=== PATIENT | female | born 1960 | race Caucasian/White ===

== ENCOUNTER 2016-05-26 10:40 | Emergency (ER) | payer BC ==
[~2016-05-26] VITALS: Ht 162.6 cm; Wt 88.5 kg
[~2016-05-26 10:40] MED LIST: HYDR-762 PO; IBUP-1542 PO; LOSA100T7 PO; METF500T4 PO; ONDA4TAB8 PO
[2016-05-26 10:50] VITALS: Ht 162.6 cm; Wt 88.5 kg
[2016-05-26] MEDS ORDERED: ACETAMINOPHEN 500 MG TAB PO STA (11:26)
[2016-05-26] MEDS ORDERED: ACETAMINOPHEN 500 MG TAB ONE (11:36)
[2016-05-26] MEDS ORDERED: KETOROLAC 60 MG INJ IM STA (11:51)
[2016-05-26] MEDS ORDERED: KETOROLAC 60 MG INJ ONE (12:04)
[2016-05-26] MEDS ORDERED: IBUP-1542 PO (13:28)
[2016-05-26] MEDS ORDERED: ULT50 PO (13:28)
--- NOTE | 2016-05-26 13:33 | ERD ---
ER Documentation Chief Complaint Date/Time DATE: 05/26/16 TIME: 13:31 Chief Complaint RT SIDED FLANK PAIN STARTING THIS MORNING HPI This 58-year-old female presents with right-sided flank pain started this morning. She possibly has some dysuria or frequent urination as well patient has a history of trauma, weakness or bowel or bladder incontinence. She has any fevers, chest pain, shortness of breath, vomiting. ROS All systems reviewed and are negative except as per history of present illness. Medications Home Meds Active Scripts Ibuprofen* (Motrin*) 600 Mg Tab, 600 MG PO Q6, #20 TAB Prov:SHANTELL MCKNIGHT MD 05/26/16 Tramadol HCl (Tramadol HCl) 50 Mg Tablet, 50 MG PO Q4 Y for PAIN, #20 TAB Prov:SHANTELL MCKNIGHT MD 05/26/16 Ibuprofen* (Motrin*) 600 Mg Tab, 600 MG PO Q6, #20 TAB Prov:SHANTELL MCKNIGHT MD 07/29/15 Reported Medications Hydrocodone Bit-Acetaminophen* ([place]*) 10-325 Mg Tablet, 1 TAB PO QID Y for PAIN, TAB 04/21/14 Metformin* (Glucophage*) 500 Mg Tab, 500 MG PO BID, TAB 04/21/14 Losartan Potassium* (Losartan Potassium*) 100 Mg Tablet, 100 MG PO DAILY, TAB 04/21/14 Ondansetron Hcl* (Zofran*) 4 Mg Tablet, 4 MG PO Q6H Y for NAUSEA AND OR VOMITING , TAB 04/21/14 Allergies Allergies: Coded Allergies: No Known Allergies (Verified Allergy, Mild, 04/21/14) PMhx/Soc History of Surgery: Yes (RIGHT KNEE SURGERY, ECTOPIC , RECTAL SURGERY) Anesthesia Reaction: No Hx Neurological Disorder: No Hx Respiratory Disorders: No Hx Cardiac Disorders: Yes (HTN) Hx Psychiatric Problems: No Hx Miscellaneous Medical Probl: Yes (DM, HIGH CHOLESTEROL) Hx Alcohol Use: No Hx Substance Use: No Hx Tobacco Use: No Physical Exam Vitals Vital Signs Date Time Temp Pulse Resp B/P Pulse Ox O2 Delivery O2 Flow Rate FiO2 05/26/16 10:50 98.4 81 18 141/78 96 Physical Exam Const: [] Alert, [id number]. Head: Atraumatic Eyes: Normal Conjunctiva ENT: Normal External Ears, Nose and Mouth. Neck: Full range of motion..~ No meningismus. Resp: Clear to auscultation bilaterally Cardio: Regular rate and rhythm, no murmurs Abd: Soft, non tender, non distended. Normal bowel sounds Skin: No petechiae or rashes Back: No midline tenderness there is some mild tenderness in the right L2-L3 area possibly the right flank. There is no mid midline tenderness or deformities and no rashes. Ext: No cyanosis, or edema Neur: Awake and alert Psych: Normal Mood and Affect Results 24 hrs Current Medications Medications (Trade) Dose Ordered Sig/Cassidy Route PRN Reason Start Time Stop Time Status Last Admin Dose Admin Acetaminophen (Tylenol Tab) 500 mg ONCE STAT PO 05/26/16 11:26 05/26/16 11:28 DC 05/26/16 11:37 Ketorolac Tromethamine (Toradol) 60 mg ONCE STAT IM 05/26/16 11:51 05/26/16 11:53 DC 05/26/16 12:07 Procedures/MDM Urine shows 1+ hemoglobin without glucose, nitrites, leukocytes. Patient was given Tylenol 500 mg initially and then Toradol [address] abdomen pelvis without contrast given the uncertain cause of pain shows no acute abnormalities , no stones no signs of pyelonephritis, diverticulitis, additional causes of flank pain. Patient felt better after observation treatment. Patient presents with right flank pain of uncertain etiology, possibly muscular skeletal pain. Signs and symptoms are not consistent with UTI, aortic disease, acute abdomen, additional causes of flank pain. Patient will be treated with tramadol and ibuprofen at home and instructions to follow-up with primary doctor this week. She is also given instructions on back exercises. Patient is advised to return to the ER for new or worsening symptoms with primary care doctor. Departure Diagnosis: Primary Impression: Flank pain Condition: Stable Patient Instructions: Back Exercises, Lumbar, Flank Pain, Uncertain Cause Additional Instructions: Urine shows no signs of infection today. CT shows no acute abnormalities. May be musculoskeletal pain. Recheck with primary doctor this week or for new or worsening symptoms. SHANTELL MCKNIGHT MD May 26, 2016 13:33
[2016-05-26 13:52] VITALS: BP 139/86; PULSE 68; RESP 18; TEMP 98.4
[2016-05-26 16:48] LABS: URINE BLOOD (Dip) POC 1+ (NEGATIVE)
--- NOTE | 2016-05-26 19:18 | RADRPT ---
PROCEDURE: CT Abdomen and Pelvis without contrast. CLINICAL INDICATION: Right flank pain, hematuria TECHNIQUE: CT of the abdomen and pelvis was performed on a multi-detector scanner without IV contr ast. Coronal and sagittal images were reformatted from the axial data set. One or more of the foll owing dose reduction techniques were used: automated exposure control, adjustment of the mA and/or kV according to patient size, use of iterative reconstruction technique. CTDI = 21.44 mGy. DLP = 12 10.12 mGy-cm. COMPARISON: None available. FINDINGS: CT abdomen: The lung bases are clear. The heart size is normal, without pericardial effusion. Coronary arteria l calcifications are present. Hepatic fatty infiltration is noted, without evidence of focal mass. Gallbladder, biliary tree, pancreas, spleen, adrenal glands and kidneys are unremarkable. No uroli thiasis or obstructive uropathy is identified. The stomach is grossly unremarkable. The aorta is of normal caliber. Aortic vascular calcifications are present. There is no retroperit rausch lymphadenopathy. The slava hepatis region is clear. 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 CT pelvis: No bowel obstruction, free intraperitoneal air or abscess is identified. Colonic diverticulosis is seen without diverticulitis. The appendix is well visualized and normal. There is no colitis. Uri nary bladder, uterus and adnexa are grossly unremarkable. Fat containing right inguinal hernia is s een, without incarceration. No pelvic mass, free fluid or lymphadenopathy is identified. The surrounding osseous structures are remarkable for degenerative spondylosis of the spine. No ost eolytic or osteoblastic lesion is detected. IMPRESSION: 1. Hepatic steatosis is noted. 2. No urolithiasis or obstructive uropathy is seen. 3. Colonic diverticulosis is noted, without diverticulitis. 4. Fat-containing right inguinal hernia is seen, without incarceration. 5. Coronary arterial and aortoiliac atherosclerotic calcifications are noted. 6. No mass, lymphadenopathy, or focal acute inflammatory process is identified. RPTAT: QQ .Hipolito Estrella MD, MD Date Time Electronically viewed and signed by .Hipolito Estrella MD, MD on 05/26/2016 13:06 .R/
== END 2016-05-26 13:53 | disposition home or self-care (01) ==
LOC: FTE 10:40
DX: R10.9 Unspecified abdominal pain (principal); I10 Essential (primary) hypertension; E11.9 Type 2 diabetes mellitus without complications; Z79.84 Long term (current) use of oral hypoglycemic drugs
CPT/HCPCS: 74176; 81003; 82962; 96372; J1885

== ENCOUNTER → 2016-07-24 | Outpatient (CLI) | payer BC ==
[~2016-07-24] MED LIST changes: +TRAM50TA2 PO
[2016-07-24 07:08] LABS: ADD SCAN DIFF NO
[2016-07-24 07:18] LABS: BASOPHIL # 0.1 10^3/ul (0.0-0.1); BASOPHILS % 0.9 % (0.0-2.0); EOSINOPHILS # 0.2 10^3/ul (0.0-0.5); EOSINOPHILS % 3.5 % (0.0-7.0); HEMATOCRIT 38.7 % (37.0-47.0); HEMOGLOBIN 12.8 g/dl (12.0-16.0); LYMPHOCYTES # 2.1 10^3/ul (0.8-2.9); LYMPHOCYTES % 37.2 % (15.0-51.0); MEAN CORPUSCULAR HEMOGLOBIN 29.8 pg (29.0-33.0); MEAN CORPUSCULAR HGB CONC 33.1 g/dl (32.0-37.0); MEAN CORPUSCULAR VOLUME 90.2 fl (82.0-101.0); MONOCYTE # 0.7 10^3/ul (0.3-0.9); MONOCYTES % 11.5 % (0.0-11.0); NEUTROPHIL # 2.7 10^3/ul (1.6-7.5); NEUTROPHILS % 46.7 % (39.0-77.0); PLATELET COUNT 326 10^3/UL (140-415); RED BLOOD COUNT 4.29 10^6/ul (4.20-5.40); WHITE BLOOD COUNT 5.7 10^3/ul (4.8-10.8)
[2016-07-24 07:32] LABS: CHLORIDE 104 mmol/L (97-110); POTASSIUM 4.3 mmol/L (3.5-5.1); SODIUM 145 mmol/L (135-144)
[2016-07-24 07:34] LABS: BILIRUBIN,INDIRECT 0.4 mg/dl (0-1.1); BILIRUBIN,TOTAL 0.4 mg/dl (0.2-1.3); CREATININE 0.53 mg/dl (0.44-1.00)
[2016-07-24 07:35] LABS: ALANINE AMINOTRANSFERASE 41 IU/L (13-69); ALBUMIN/GLOBULIN RATIO 0.93; ALKALINE PHOSPHATASE 92 IU/L (42-121); ANION GAP 17 (8-16); ASPARTATE AMINO TRANSFERASE 32 IU/L (15-46); BLOOD UREA NITROGEN 18 mg/dl (7-20); CALCIUM 9.4 mg/dl (8.4-10.2); CARBON DIOXIDE 28 mmol/L (21-31); GLUCOSE 122 mg/dl (70-220); TOTAL PROTEIN 8.3 g/dl (6.1-8.1)
== END | disposition home or self-care (01) ==
LOC: LAB 06:42
PROVIDERS: ATTEND Specialist
DX: M06.9 Rheumatoid arthritis, unspecified (principal)
CPT/HCPCS: 80053; 82306; 85025; 85651; 86140

== ENCOUNTER → 2016-10-08 | Outpatient (CLI) | payer BC ==
[~2016-10-08] MED LIST changes: +IODIXANOL LOCM 100 ML BTL ONE; +SOD CHLORIDE 0.9% 100 ML ONE
--- NOTE | 2016-10-08 17:11 | RADRPT ---
PROCEDURE: CT of the pelvis CLINICAL INDICATION: Pelvic pain TECHNIQUE: The study was performed utilizing a GE CloudSplitpeed 64-slice multidetector CT scanner. Dir ect spiral axial sections were obtained through the pelvis without and with intravenous contrast. Ap proximately 100cc of Visipaque 320, postcontrast images was administered. Coronal and sagittal refo rmatted images were performed. The CTDI vol is 38.13 mGy and the DLP is 1608.89 mGy-cm. The images were reviewed on a PACS workstation. COMPARISON: CT of the abdomen and pelvis from 05/26/2016 FINDINGS: The visualized solid organs appear unremarkable. Sigmoid diverticulosis is seen without evidence of diverticulitis. The remaining visualized large bowel is otherwise unremarkable. The small bowel i s normal. Normal appendix is identified. No abnormally enlarged lymph nodes are seen. Atherosclero tic vascular disease is seen. No focal fluid collection or abscess is seen. CT pelvis: No pelvic mass, adenopathy, or focal fluid collection is seen. There is no free fluid. The urinary bladder is normal. The uterine is heterogeneous with parenchymal calcifications once ag ain. No osseous lesions are seen. Degenerative spondylosis of the lumbar spine is seen. IMPRESSION: 1. No CT evidence for acute pathology in the pelvis. 2. Sigmoid diverticulosis without evidence of diverticulitis again seen. 3. Heterogeneous uterus with multiple parenchymal calcifications which may be leiomyomatous in natu re. Consider pelvic ultrasound correlation as clinically warranted. RPTAT: HPNM Physician Sharon Date Time Electronically viewed and signed by Physician Sharon on 10/08/2016 17:11 /
== END | disposition home or self-care (01) ==
LOC: C/S 11:56
PROVIDERS: ATTEND Obstetrics & Gynecology
DX: R10.2 Pelvic and perineal pain (principal); K57.90 Diverticulosis of intestine, part unspecified, without perforation or abscess without bleeding; N85.8 Other specified noninflammatory disorders of uterus
CPT/HCPCS: 72194; Q9967

== ENCOUNTER → 2016-12-04 | Outpatient (CLI) | payer BC ==
[~2016-12-04] MED LIST changes: -IODIXANOL LOCM 100 ML BTL ONE; -SOD CHLORIDE 0.9% 100 ML ONE
[2016-12-04 10:43] LABS: ADD SCAN DIFF NO
[2016-12-04 10:55] LABS: BASOPHILS % 0.6 % (0.0-2.0); EOSINOPHILS # 0.2 10^3/ul (0.0-0.5); EOSINOPHILS % 2.8 % (0.0-7.0); HEMATOCRIT 39.8 % (37.0-47.0); HEMOGLOBIN 12.8 g/dl (12.0-16.0); LYMPHOCYTES # 2.4 10^3/ul (0.8-2.9); LYMPHOCYTES % 38.1 % (15.0-51.0); MEAN CORPUSCULAR HGB CONC 32.2 g/dl (32.0-37.0); MEAN PLATELET VOLUME 10.5 fl (7.4-10.4); MONOCYTE # 0.6 10^3/ul (0.3-0.9); MONOCYTES % 9.9 % (0.0-11.0); NEUTROPHIL # 3.1 10^3/ul (1.6-7.5); NEUTROPHILS % 48.4 % (39.0-77.0); PLATELET COUNT 293 10^3/UL (140-415); RED BLOOD COUNT 4.42 10^6/ul (4.20-5.40); RED CELL DISTRIBUTION WIDTH 13.4 % (11.5-14.5); WHITE BLOOD COUNT 6.4 10^3/ul (4.8-10.8)
[2016-12-04 11:14] LABS: ALANINE AMINOTRANSFERASE 53 IU/L (13-69); ALBUMIN 4.7 g/dl (3.3-4.9); ALBUMIN/GLOBULIN RATIO 1.42; ALKALINE PHOSPHATASE 82 IU/L (42-121); ANION GAP 11 (8-16); ASPARTATE AMINO TRANSFERASE 34 IU/L (15-46); BILIRUBIN,INDIRECT 0.5 mg/dl (0-1.1); BILIRUBIN,TOTAL 0.5 mg/dl (0.2-1.3); BLOOD UREA NITROGEN 14 mg/dl (7-20); CARBON DIOXIDE 30 mmol/L (21-31); CHLORIDE 102 mmol/L (97-110); CREATININE 0.52 mg/dl (0.44-1.00); GLUCOSE 118 mg/dl (70-220); SODIUM 139 mmol/L (135-144)
== END | disposition home or self-care (01) ==
LOC: LAB 10:14
PROVIDERS: ATTEND Internal Medicine Rheumatology
DX: M06.9 Rheumatoid arthritis, unspecified (principal)
CPT/HCPCS: 80053; 82306; 85025; 85651; 86140

== ENCOUNTER → 2017-01-03 | Outpatient (CLI) | payer BC ==
[2017-01-03 07:59] LABS: BASOPHILS % 0.4 % (0.0-2.0); EOSINOPHILS # 0.2 10^3/ul (0.0-0.5); EOSINOPHILS % 3.3 % (0.0-7.0); HEMATOCRIT 39.1 % (37.0-47.0); LYMPHOCYTES # 1.8 10^3/ul (0.8-2.9); LYMPHOCYTES % 26.6 % (15.0-51.0); MEAN CORPUSCULAR HEMOGLOBIN 29.7 pg (29.0-33.0); MEAN CORPUSCULAR HGB CONC 33.2 g/dl (32.0-37.0); MEAN CORPUSCULAR VOLUME 89.5 fl (82.0-101.0); MEAN PLATELET VOLUME 10.2 fl (7.4-10.4); MONOCYTE # 0.6 10^3/ul (0.3-0.9); MONOCYTES % 9.4 % (0.0-11.0); PLATELET COUNT 311 10^3/UL (140-415); RED BLOOD COUNT 4.37 10^6/ul (4.20-5.40); RED CELL DISTRIBUTION WIDTH 13.1 % (11.5-14.5); WHITE BLOOD COUNT 6.7 10^3/ul (4.8-10.8)
[2017-01-03 08:22] LABS: ALBUMIN 4.3 g/dl (3.3-4.9); ALBUMIN/GLOBULIN RATIO 1.16; BILIRUBIN,INDIRECT 0.5 mg/dl (0-1.1); BILIRUBIN,TOTAL 0.5 mg/dl (0.2-1.3); C-REACTIVE PROTEIN 2.8 mg/dl (0.0-0.9); CALCIUM 9.4 mg/dl (8.4-10.2); CREATININE 0.51 mg/dl (0.44-1.00); POTASSIUM 4.3 mmol/L (3.5-5.1)
== END | disposition home or self-care (01) ==
LOC: LAB 07:06
PROVIDERS: ATTEND Internal Medicine Rheumatology
DX: M06.9 Rheumatoid arthritis, unspecified (principal); E55.9 Vitamin D deficiency, unspecified
CPT/HCPCS: 80053; 82306; 85025; 85651; 86140

== ENCOUNTER → 2017-02-06 | Outpatient (CLI) | payer BC ==
[2017-02-06 07:28] LABS: BASOPHILS % 0.7 % (0.0-2.0); EOSINOPHILS # 0.2 10^3/ul (0.0-0.5); EOSINOPHILS % 3.7 % (0.0-7.0); HEMATOCRIT 39.4 % (37.0-47.0); HEMOGLOBIN 12.8 g/dl (12.0-16.0); LYMPHOCYTES # 1.6 10^3/ul (0.8-2.9); LYMPHOCYTES % 29.9 % (15.0-51.0); MEAN CORPUSCULAR HEMOGLOBIN 29.3 pg (29.0-33.0); MEAN CORPUSCULAR HGB CONC 32.5 g/dl (32.0-37.0); MEAN CORPUSCULAR VOLUME 90.2 fl (82.0-101.0); MEAN PLATELET VOLUME 10.1 fl (7.4-10.4); MONOCYTE # 0.5 10^3/ul (0.3-0.9); MONOCYTES % 9.9 % (0.0-11.0); NEUTROPHILS % 55.6 % (39.0-77.0); PLATELET COUNT 295 10^3/UL (140-415); RED BLOOD COUNT 4.37 10^6/ul (4.20-5.40); RED CELL DISTRIBUTION WIDTH 13.2 % (11.5-14.5); WHITE BLOOD COUNT 5.4 10^3/ul (4.8-10.8)
[2017-02-06 08:01] LABS: ALANINE AMINOTRANSFERASE 49 IU/L (13-69); ALBUMIN 3.8 g/dl (3.3-4.9); ALBUMIN/GLOBULIN RATIO 1.08; ALKALINE PHOSPHATASE 98 IU/L (42-121); ANION GAP 10 (8-16); ASPARTATE AMINO TRANSFERASE 34 IU/L (15-46); BILIRUBIN,INDIRECT 0.5 mg/dl (0-1.1); BILIRUBIN,TOTAL 0.5 mg/dl (0.2-1.3); BLOOD UREA NITROGEN 13 mg/dl (7-20); CALCIUM 9.1 mg/dl (8.4-10.2); CARBON DIOXIDE 29 mmol/L (21-31); CHLORIDE 105 mmol/L (97-110); CREATININE 0.53 mg/dl (0.44-1.00); GLUCOSE 150 mg/dl (70-220); POTASSIUM 4.2 mmol/L (3.5-5.1); SODIUM 140 mmol/L (135-144); TOTAL PROTEIN 7.3 g/dl (6.1-8.1)
== END | disposition home or self-care (01) ==
LOC: LAB 06:51
PROVIDERS: ATTEND Internal Medicine Rheumatology
DX: M06.9 Rheumatoid arthritis, unspecified (principal)
CPT/HCPCS: 80053; 85025; 85651; 86140; 86480

== ENCOUNTER 2017-02-09 10:20 | Emergency (ER) | payer BC ==
[~2017-02-09] VITALS: Ht 160 cm; Wt 90.0 kg
[2017-02-09 10:22] VITALS: Ht 160 cm; Wt 90.0 kg
--- NOTE | 2017-02-09 11:14 | RADRPT ---
PROCEDURE: Right breast ultrasound. CLINICAL INDICATION: Right breast pain and tenderness. Fibrocystic disease of breast. TECHNIQUE: Right whole, 4 quadrant breast and retroareolar, and axillary sonography was performed. COMPARISON: None. FINDINGS: No solid or suspicious masses. No malignant adenopathy. No dominant cysts are present. IMPRESSION: No sonographic evidence of malignancy. ACR BIRADS 1: NEGATIVE RPTAT: EE .Tammy Rosa MD, MD Date Time Electronically viewed and signed by .Tammy Rosa MD, on 02/09/2017 11:14 .F/
[2017-02-09] MEDS ORDERED: IBUP-1542 PO (11:49)
--- NOTE | 2017-02-09 11:52 | ERD ---
ER Documentation Chief Complaint Date/Time DATE: 02/09/17 TIME: 11:50 Chief Complaint lump on right breast x3 days, sent by pcp HPI 56-year-old female presents with three-day history of pain in her right breast. She possibly feels a small lump. She was referred by her primary doctor for evaluation in the ER. She denies any fevers, nipple discharge, history of trauma. Patient denies ever having had a mammogram. ROS All systems reviewed and are negative except as per history of present illness. Medications Home Meds Active Scripts Ibuprofen* (Motrin*) 600 Mg Tab, 600 MG PO Q6, #18 TAB Prov:SHANTELL MCKNIGHT MD 02/09/17 Ibuprofen* (Motrin*) 600 Mg Tab, 600 MG PO Q6, #20 TAB Prov:SHANTELL MCKNIGHT MD 05/26/16 Tramadol HCl (Tramadol HCl) 50 Mg Tablet, 50 MG PO Q4 Y for PAIN, #20 TAB Prov:SHANTELL MCKNIGHT MD 05/26/16 Ibuprofen* (Motrin*) 600 Mg Tab, 600 MG PO Q6, #20 TAB Prov:SHANTELL MCKNIGHT MD 07/29/15 Reported Medications Hydrocodone Bit-Acetaminophen* ([place]*) 10-325 Mg Tablet, 1 TAB PO QID Y for PAIN, TAB 04/21/14 Metformin* (Glucophage*) 500 Mg Tab, 500 MG PO BID, TAB 04/21/14 Losartan Potassium* (Losartan Potassium*) 100 Mg Tablet, 100 MG PO DAILY, TAB 04/21/14 Ondansetron Hcl* (Zofran*) 4 Mg Tablet, 4 MG PO Q6H Y for NAUSEA AND OR VOMITING , TAB 04/21/14 Allergies Allergies: Coded Allergies: No Known Allergies (Verified Allergy, Mild, 04/21/14) PMhx/Soc Medical and Surgical Hx: pt denies Medical Hx, pt denies Surgical Hx History of Surgery: Yes (RIGHT KNEE SURGERY, ECTOPIC , RECTAL SURGERY) Anesthesia Reaction: No Hx Neurological Disorder: No Hx Respiratory Disorders: No Hx Cardiac Disorders: Yes (HTN) Hx Psychiatric Problems: No Hx Miscellaneous Medical Probl: Yes (DM, HIGH CHOLESTEROL) Hx Alcohol Use: No Hx Substance Use: No Hx Tobacco Use: No Physical Exam Vitals Vital Signs Date Time Temp Pulse Resp B/P Pulse Ox O2 Delivery O2 Flow Rate FiO2 02/09/17 10:22 98.2 84 18 133/84 98 Physical Exam Const: []Alert, not ill-appearing Head: Atraumatic Eyes: Normal Conjunctiva ENT: Normal External Ears, Nose and Mouth. Neck: Full range of motion..~ No meningismus. Resp: Clear to auscultation bilaterally Cardio: Regular rate and rhythm, no murmurs Abd: Soft, non tender, non distended. Normal bowel sounds Skin: No petechiae or rashes. Slight tenderness at 12:00 on the right breast. There is no appreciable dominant masses nipple discharge, lymphadenitis or skin changes. Possibly small area of irritation although this may be from pointing and rubbing. Back: No midline or flank tenderness Ext: No cyanosis, or edema Neur: Awake and alert Psych: Normal Mood and Affect Procedures/MDM Breast ultrasound limited read as normal by the radiologist. Patient presents to the right breast pain of uncertain etiology. May be glandular. There is no current evidence of abscess, dominant masses, signs of cellulitis. She will be treated with ibuprofen and primary care follow-up. Patient was advised that she is due to have a mammogram based upon her age. Patient redness, fevers, new worsening symptoms or primary doctor as directed. The patient was stable with no new complaints during the ER course. Clinically, there is no current evidence to suggest meningitis, sepsis, acute abdomen, pneumonia, acute coronary syndrome, pulmonary embolism, or any other emergent condition appearing to require further evaluation or hospitalization. The patient should certainly return for any new or worsening symptoms per the aftercare instructions. They should otherwise follow-up with her primary care doctor for reevaluation this week. Departure Diagnosis: Primary Impression: Breast pain Condition: Stable Patient Instructions: Breast Self-Exam (BSE) Additional Instructions: Ultrasound read as normal today. See primary doctor for mammogram. Recheck for worsening redness, fevers, new symptoms. SHANTELL MCKNIGHT MD Feb 09, 2017 11:52
== END 2017-02-09 12:06 | disposition home or self-care (01) ==
LOC: FTE 10:20
DX: N64.4 Mastodynia (principal); I10 Essential (primary) hypertension; E11.9 Type 2 diabetes mellitus without complications; Z79.84 Long term (current) use of oral hypoglycemic drugs
CPT/HCPCS: 76642

== ENCOUNTER → 2017-03-20 | Outpatient (CLI) | payer BC ==
[2017-03-20 07:48] LABS: BASOPHILS % 0.5 % (0.0-2.0); EOSINOPHILS # 0.2 10^3/ul (0.0-0.5); EOSINOPHILS % 3.4 % (0.0-7.0); HEMATOCRIT 38.6 % (37.0-47.0); HEMOGLOBIN 12.8 g/dl (12.0-16.0); LYMPHOCYTES # 2.3 10^3/ul (0.8-2.9); LYMPHOCYTES % 35.6 % (15.0-51.0); MEAN CORPUSCULAR HEMOGLOBIN 29.4 pg (29.0-33.0); MEAN CORPUSCULAR HGB CONC 33.2 g/dl (32.0-37.0); MEAN CORPUSCULAR VOLUME 88.5 fl (82.0-101.0); MEAN PLATELET VOLUME 10.2 fl (7.4-10.4); MONOCYTE # 0.6 10^3/ul (0.3-0.9); MONOCYTES % 8.9 % (0.0-11.0); NEUTROPHIL # 3.4 10^3/ul (1.6-7.5); NEUTROPHILS % 51.4 % (39.0-77.0); PLATELET COUNT 275 10^3/UL (140-415); RED BLOOD COUNT 4.36 10^6/ul (4.20-5.40); RED CELL DISTRIBUTION WIDTH 13.5 % (11.5-14.5); WHITE BLOOD COUNT 6.5 10^3/ul (4.8-10.8)
[2017-03-20 08:08] LABS: ALANINE AMINOTRANSFERASE 51 IU/L (13-69); ALBUMIN 4.3 g/dl (3.3-4.9); ALBUMIN/GLOBULIN RATIO 1.16; ALKALINE PHOSPHATASE 89 IU/L (42-121); ANION GAP 14 (8-16); ASPARTATE AMINO TRANSFERASE 40 IU/L (15-46); BILIRUBIN,INDIRECT 0.6 mg/dl (0-1.1); BILIRUBIN,TOTAL 0.6 mg/dl (0.2-1.3); BLOOD UREA NITROGEN 17 mg/dl (7-20); CALCIUM 8.8 mg/dl (8.4-10.2); CARBON DIOXIDE 27 mmol/L (21-31); CHLORIDE 105 mmol/L (97-110); CREATININE 0.55 mg/dl (0.44-1.00); GLUCOSE 141 mg/dl (70-220); POTASSIUM 4.3 mmol/L (3.5-5.1); SODIUM 142 mmol/L (135-144)
== END | disposition home or self-care (01) ==
LOC: LAB 07:16
PROVIDERS: ATTEND Specialist
DX: M06.9 Rheumatoid arthritis, unspecified (principal)
CPT/HCPCS: 80053; 85025; 85651; 86140

== ENCOUNTER → 2017-05-12 | Outpatient (CLI) | END | disposition home or self-care (01) ==

== ENCOUNTER 2017-05-22 06:35 | Emergency (ER) | payer BC ==
[~2017-05-22] VITALS: Ht 160 cm; Wt 94.3 kg
[2017-05-22 06:41] VITALS: Ht 160 cm; Wt 94.3 kg
[2017-05-22] MEDS ORDERED: CLON0.5T4 PO (07:53)
[2017-05-22] MEDS ORDERED: FOLI-49 PO (07:53)
[2017-05-22] MEDS ORDERED: ADAL40SY SQ (07:53)
[2017-05-22] MEDS ORDERED: MET25 PO (07:55)
[2017-05-22 08:05] LABS: BASOPHILS % 0.5 % (0.0-2.0); EOSINOPHILS # 0.2 10^3/ul (0.0-0.5); EOSINOPHILS % 3.1 % (0.0-7.0); HEMOGLOBIN 12.8 g/dl (12.0-16.0); LYMPHOCYTES # 1.6 10^3/ul (0.8-2.9); LYMPHOCYTES % 26.2 % (15.0-51.0); MEAN CORPUSCULAR HEMOGLOBIN 29.8 pg (29.0-33.0); MEAN CORPUSCULAR HGB CONC 33.7 g/dl (32.0-37.0); MEAN CORPUSCULAR VOLUME 88.6 fl (82.0-101.0); MEAN PLATELET VOLUME 10.7 fl (7.4-10.4); MONOCYTE # 0.7 10^3/ul (0.3-0.9); MONOCYTES % 11.4 % (0.0-11.0); NEUTROPHIL # 3.6 10^3/ul (1.6-7.5); NEUTROPHILS % 58.5 % (39.0-77.0); PLATELET COUNT 261 10^3/UL (140-415); RED BLOOD COUNT 4.29 10^6/ul (4.20-5.40); RED CELL DISTRIBUTION WIDTH 13.1 % (11.5-14.5); WHITE BLOOD COUNT 6.2 10^3/ul (4.8-10.8)
[2017-05-22 08:11] LABS: ANION GAP 15 (8-16); BLOOD UREA NITROGEN 13 mg/dl (7-20); CARBON DIOXIDE 26 mmol/L (21-31); CHLORIDE 104 mmol/L (97-110); CREATININE 0.48 mg/dl (0.44-1.00); GLUCOSE 191 mg/dl (70-220); POTASSIUM 3.8 mmol/L (3.5-5.1); SODIUM 141 mmol/L (135-144)
--- NOTE | 2017-05-22 08:21 | RADRPT ---
PROCEDURE: XR Chest. CLINICAL INDICATION: Chest pain. TECHNIQUE: Single frontal view. COMPARISON: 04/21/2014. FINDINGS: The lungs are clear. The heart size is normal. There is no pleural effusion. There is no pneumothorax. IMPRESSION: 1. Normal chest radiograph. 2. No change from 04/21/2014. RPTAT: QQ .Rudy Lopez MD, MD Date Time Electronically viewed and signed by .Rudy Lopez MD, MD on 05/22/2017 08:21 .R/
[2017-05-22 08:23] LABS: TROPONIN-I < 0.012 ng/ml (0.00-0.12)
--- NOTE | 2017-05-22 08:51 | ERD ---
ER Documentation Chief Complaint Chief Complaint FEELING DIZZY YEST & TODAY, NAUSEA & SOB THIS AM; SBP MEASURED AT HOME >200 HPI This is a 56-year-old female with a history of hypertension, arthritis and diabetes who presents to the emergency room for evaluation of high blood pressure. This patient states that she takes losartan in the morning for her high blood pressure however at night she states her blood pressure has been high. She states that today she measured her blood pressure around 3 in the morning and it was greater than 200. Patient denies any chest pain, back pain, shortness of breath, palpitations associated with this. She denies any nausea or vomiting and came to the emergency room for evaluation of her symptoms. She does state that she recently started Humira ROS All systems reviewed and are negative except as per history of present illness. Medications Home Meds Reported Medications Methotrexate* (Methotrexate*) 2.5 Mg Tab, 15 MG PO ON FRIDAY, #24 05/22/17 Folic Acid* (Folic Acid*) 1 Mg Tablet, 1 MG PO DAILY, TAB 05/22/17 Clonazepam* (Clonazepam*) 0.5 Mg Tablet, 0.5 MG PO DAILY Y for ANXIETY, TAB 05/22/17 Adalimumab (Humira Pediatric Crohn's) 40 Mg/0.8 Ml Syringekit, 40 MG SQ BI WEEKLY 05/22/17 Metformin* (Glucophage*) 500 Mg Tab, 500 MG PO BID, TAB 04/21/14 Losartan Potassium* (Losartan Potassium*) 100 Mg Tablet, 100 MG PO DAILY, TAB 04/21/14 Discontinued Reported Medications Hydrocodone Bit-Acetaminophen* ([place]*) 10-325 Mg Tablet, 1 TAB PO QID Y for PAIN, TAB 04/21/14 Ondansetron Hcl* (Zofran*) 4 Mg Tablet, 4 MG PO Q6H Y for NAUSEA AND OR VOMITING , TAB 04/21/14 Discontinued Scripts Ibuprofen* (Motrin*) 600 Mg Tab, 600 MG PO Q6, #18 TAB Prov:SHANTELL MCKNIGHT MD 02/09/17 Ibuprofen* (Motrin*) 600 Mg Tab, 600 MG PO Q6, #20 TAB Prov:SHANTELL MCKNIGHT MD 05/26/16 Tramadol HCl (Tramadol HCl) 50 Mg Tablet, 50 MG PO Q4 Y for PAIN, #20 TAB Prov:SHANTELL MCKNIGHT MD 05/26/16 Ibuprofen* (Motrin*) 600 Mg Tab, 600 MG PO Q6, #20 TAB Prov:SHANTELL MCKNIGHT MD 07/29/15 Allergies Allergies: Coded Allergies: No Known Allergies (Verified Allergy, Mild, 04/21/14) PMhx/Soc History of Surgery: Yes (ECTOPIC , RECTAL SURGERY) Anesthesia Reaction: No Hx Neurological Disorder: No Hx Respiratory Disorders: No Hx Cardiac Disorders: Yes (HTN) Hx Psychiatric Problems: No Hx Miscellaneous Medical Probl: Yes (DM, RHEUMATOID ARTHRITIS) Hx Alcohol Use: No Hx Substance Use: No Hx Tobacco Use: No Smoking Status: Never smoker Physical Exam Vitals Vital Signs Date Time Temp Pulse Resp B/P Pulse Ox O2 Delivery O2 Flow Rate FiO2 05/22/17 08:03 69 17 138/87 99 Room Air 05/22/17 07:30 98.0 70 16 146/124 Room Air 05/22/17 06:41 97.9 84 16 191/85 98 Physical Exam INITIAL VITAL SIGNS: Reviewed by me GENERAL: The patient is well developed and appropriate for usual state of health in no apparent distress HEENT: Pupils equal, round, and reactive to light. EOMI. There is no scleral icterus. NECK: C-spine is soft and supple, there is no meningismus. There is no cervical lymphadenopathy. LUNGS: Clear to auscultation bilaterally. There are no rales, wheezes or rhonchi. HEART: Regular rate and rhythm, no murmurs, clicks, rubs or gallops. ABDOMEN: Soft, non-tender, non-distended. There are bowel sounds in all four quadrants. No rebound or guarding. EXTREMITIES: There is no peripheral cyanosis or edema. No focal swelling or erythema. NEUROLOGICAL: The patient moves all four extremities with 5/5 strength. Cranial nerves II - XII are intact. Normal gait. Alert and oriented SKIN: There is no apparent rash or petechiae. HEME/LYMPHATIC: There is no evidence of excessive bruising or lymphedema. PSYCHIATRIC: The patient does not appear anxious or depressed. Result Diagram: 05/22/17 0730 05/22/17 0730 Results 24 hrs Laboratory Tests Test 05/22/17 07:30 White Blood Count 6.210^3/ul Red Blood Count 4.2910^6/ul Hemoglobin 12.8g/dl Hematocrit 38.0% Mean Corpuscular Volume 88.6fl Mean Corpuscular Hemoglobin 29.8pg Mean Corpuscular Hemoglobin Concent 33.7g/dl Red Cell Distribution Width 13.1% Platelet Count 84072^3/UL Mean Platelet Volume 10.7fl Neutrophils % 58.5% Lymphocytes % 26.2% Monocytes % 11.4% Eosinophils % 3.1% Basophils % 0.5% Nucleated Red Blood Cells % 0.0/100WBC Neutrophils # 3.610^3/ul Lymphocytes # 1.610^3/ul Monocytes # 0.710^3/ul Eosinophils # 0.210^3/ul Basophils # 0.010^3/ul Nucleated Red Blood Cells # 0.010^3/ul Sodium Level 141mmol/L Potassium Level 3.8mmol/L Chloride Level 104mmol/L Carbon Dioxide Level 26mmol/L Anion Gap 15 Blood Urea Nitrogen 13mg/dl Creatinine 0.48mg/dl Glucose Level 191mg/dl Calcium Level 9.0mg/dl Troponin I < 0.012ng/ml Procedures/MDM EKG: Rate/Rhythm: [Normal Sinus Rhythm] QRS, ST, T-waves: [No changes consistent w/ acute ischemia] Impression: [No evidence of ischemia or arrhythmia] Chest X-ray 1V Interpreted by me: Soft Tissue: No acute abnormalities Bones: No acute abnormalities Mediastinum/Cardiac Silhouette/Lungs: [No acute abnormalities] This 56-year-old female presents to the emergency room for evaluation of elevated blood pressure. When I evaluated this patient she was slightly hypertensive. Lab work was obtained including an EKG which is nonischemic. Chest x-ray is clear. Her repeat blood pressure after observation in the emergency room is 149/77. The patient is taking losartan at night. I advised her that she needs to contact her primary care physician who started her on Humira to determine whether night it is having a side effect with her blood pressure medication. I also advised her to speak with her primary care in regards to possible changing of her dosage of medication because she does state that her blood pressure is normal during the day and only elevated at night. She verbalized understanding. She is not hypoxic, nontoxic-appearing and in no acute distress. She will be discharged home at this time with instructions to return to the ER any point for reevaluation. She verbalized understanding and is okay to plan of care. Departure Diagnosis: Primary Impression: Hypertension Condition: Stable ALTAGRACIA SIFUENTES DO May 22, 2017 08:51
[2017-05-22 08:55] VITALS: BP 145/83; PULSE 66; RESP 16; TEMP 97.8
== END 2017-05-22 09:12 | disposition home or self-care (01) ==
LOC: E/R 06:35
DX: I10 Essential (primary) hypertension (principal); E11.9 Type 2 diabetes mellitus without complications; Z79.84 Long term (current) use of oral hypoglycemic drugs
CPT/HCPCS: 36415; 71010; 80048; 84484; 85025; 93005

== ENCOUNTER → 2017-07-02 | Outpatient (CLI) | END | disposition home or self-care (01) ==

== ENCOUNTER → 2017-10-09 | Outpatient (CLI) | END | disposition home or self-care (01) ==

== ENCOUNTER → 2017-11-27 | Outpatient (CLI) | END | disposition home or self-care (01) ==

== ENCOUNTER → 2018-01-30 | Outpatient (CLI) | END | disposition home or self-care (01) ==

== ENCOUNTER → 2018-02-20 | Outpatient (CLI) | END | disposition home or self-care (01) ==

== ENCOUNTER → 2018-03-13 | Outpatient (CLI) | END | disposition home or self-care (01) ==

== ENCOUNTER → 2018-07-17 | Outpatient (CLI) | payer BC ==
[~2018-07-17] MED LIST changes: +ADAL40SY SQ; +CLON0.5T14 PO; +FOLI-49 PO; -HYDR-762 PO; -IBUP-1542 PO; +LOSA100T15 PO; -LOSA100T7 PO; +MET25 PO; +METF-849 PO; -METF500T4 PO; -ONDA4TAB8 PO; -TRAM50TA2 PO
== END | disposition home or self-care (01) ==
LOC: LAB 10:11
PROVIDERS: ATTEND Specialist
DX: M06.9 Rheumatoid arthritis, unspecified (principal); E55.9 Vitamin D deficiency, unspecified
CPT/HCPCS: 82306; 85025; 85651; 86140

== ENCOUNTER → 2018-08-18 | Outpatient (CLI) | payer BC | END | disposition home or self-care (01) | LOC: LAB 11:04 | PROVIDERS: ATTEND Internal Medicine | DX: E11.8 Type 2 diabetes mellitus with unspecified complications (principal); E78.5 Hyperlipidemia, unspecified | CPT/HCPCS: 80053; 80061; 81001; 82043; 83036; 84443; 85025 ==

== ENCOUNTER → 2018-10-14 | Outpatient (CLI) | payer BC ==
--- NOTE | 2018-10-14 16:17 | RADRPT ---
Vent Rate: 73 bpm RR Interval: 828 msec MA Interval: 142 msec QRS Duration: 91 msec QT Interval: 404 msec QTC Interval: 444 msec P-R-T [place]: 23 - -45 - 61 degrees Sinus rhythm...normal P axis, V-rate 50- 99 LAD, consider left anterior fascicular block...axis(240,-40), S>R II III aVF Electronically Signed By: Miko Babcock
== END | disposition home or self-care (01) ==
LOC: LAB 10:01
PROVIDERS: ATTEND Internal Medicine
DX: I10 Essential (primary) hypertension (principal); E11.9 Type 2 diabetes mellitus without complications
CPT/HCPCS: 80053; 80061; 81001; 82043; 82150; 82306; 82607; 83036; 83690; 83735; 84439; 84443; 85025; 93005

== ENCOUNTER → 2018-11-02 | Outpatient (CLI) | payer BC | END | disposition home or self-care (01) | LOC: LAB 10:34 | PROVIDERS: ATTEND Internal Medicine Rheumatology | DX: I10 Essential (primary) hypertension (principal); E11.9 Type 2 diabetes mellitus without complications; E78.00 Pure hypercholesterolemia, unspecified; M06.9 Rheumatoid arthritis, unspecified; E55.9 Vitamin D deficiency, unspecified | CPT/HCPCS: 80053; 82306; 85025; 85651; 86140 ==

== ENCOUNTER 2019-01-12 07:30 | Emergency (ER) | payer BC ==
[~2019-01-12] VITALS: Ht 162.6 cm; Wt 77.2 kg
[~2019-01-12 07:30] MED LIST changes: +BUTA1CAP38 PO
[2019-01-12 07:33] VITALS: BP 167/97; PULSE 89; RESP 18; Ht 162.6 cm; Wt 77.2 kg
[2019-01-12] MEDS ORDERED: DIPHENHYDRAMINE 50 MG INJ IV STA (07:53)
[2019-01-12] MEDS ORDERED: KETOROLAC 30 MG INJ IV STA (07:53)
[2019-01-12] MEDS ORDERED: ONDANSETRON 4 MG INJ IV STA (07:53)
[2019-01-12] MEDS ORDERED: SOD CHLORIDE 0.9% 1,000 ML IV STA (07:53)
[2019-01-12] MEDS ORDERED: DEXAMETHASONE 10 MG/ML 1 ML INJ IV ONE (09:30)
== END 2019-01-12 10:01 | disposition home or self-care (01) ==
LOC: FTE 07:30
DX: R51 Headache (principal); I10 Essential (primary) hypertension; E11.9 Type 2 diabetes mellitus without complications; R11.10 Vomiting, unspecified; Z79.84 Long term (current) use of oral hypoglycemic drugs
CPT/HCPCS: 36415; 70450; 80053; 81001; 85025; 85610; 85730; 96361; 96374; 96375; 99285; J1100; J1200; J1885; J2405; J7030

== ENCOUNTER → 2019-01-15 | Outpatient (CLI) | payer BC | END | disposition home or self-care (01) | LOC: LAB 14:02 | PROVIDERS: ATTEND Specialist | DX: M06.9 Rheumatoid arthritis, unspecified (principal) | CPT/HCPCS: 80053; 85025; 85651; 86140 ==